=== PATIENT | female | born 1980 | race Caucasian/White ===

== ENCOUNTER 2020-02-12 08:27 | Emergency (ER) | payer BC, SELFPAY ==
--- NOTE | ~2020-02-12 | XR_ITS ---
EXAMINATION: XR finger 3rd RT min 2V DATE: 02/12/2020 08:57 INDICATION: Laceration to the distal right third digit TECHNIQUE: Dorsal palmar, lateral and 2 oblique views of the right third digit were obtained COMPARISON: None FINDINGS: Alignment is normal. No fracture. Joint spaces are normal. Laceration at the palmar/radial aspect of the third digit at the level of the distal interphalangeal joint line. No radiopaque foreign bodies i dentified however sensitivity is decreased by the bandaging material surrounding the third digit IMPRESSION: 1. No osseous abnormality. Line 2. Deep laceration with no evident radiopaque foreign body. Sensitivity is however decreased by super imposed bandaging material. Reviewed, dictated and finalized at location A. IMPRESSION: 1. No osseous abnormality. Line 2. Deep laceration with no evident radiopaque foreign body. Sensitivity is otero cruz decreased by superimposed bandaging material.
[2020-02-12 08:42] VITALS: BP 125/91; PULSE 81; RESP 17; TEMP 36.3; O2SAT 99
--- NOTE | 2020-02-12 08:47 | ED.WOUNDLAC ---
HPI - Wound/Laceration General Chief Complaint: Wound/Laceration <Allyson Guerrero MD - Last Filed: 02/12/20 18:53> Stated Complaint: laceration left wrist <Allyson Guerrero MD - Last Filed: 02/12/20 18:53> Time Seen by Provider: 02/12/20 08:37 <Allyson Guerrero MD - Last Filed: 02/12/20 18:53> Source: patient <Allyson Guerrero MD - Last Filed: 02/12/20 18:53> Mode of arrival: ambulatory <Allyson Guerrero MD - Last Filed: 02/12/20 18:53> Limitations: no limitations <Allyson Guerrero MD - Last Filed: 02/12/20 18:53> History of Present Illness HPI narrative: This patient is a 39 year old female right hand dominant who presents for evaluation of right 3rd finger laceration. This morning she reports a glass bottle fell and broken piece hit her finger causing a laceration. She denies numbness or tingling. She reports her tetanus being up to date. <Allyson Guerrero MD - Last Filed: 02/12/20 18:53> Related Data Home Medications: Home Medications Medication Instructions Recorded Confirmed lisinopril 5 mg tablet 5 mg PO DAILY 01/20/20 01/20/20 <Allyson Guerrero MD - Last Filed: 02/12/20 18:53> Allergies/Adverse Reactions: Allergies Allergy/AdvReac Type Severity Reaction Status Date / Time Penicillins Allergy Unknown Anaphylaxis Verified 01/20/20 09:18 <Allyson Guerrero MD - Last Filed: 02/12/20 18:53> Review of Systems Review of Systems: All systems reviewed & are unremarkable except as noted in HPI and below <Allyson Guerrero MD - Last Filed: 02/12/20 18:53> [facility] Past Medical History Medical History: Medical History delivery delivered x2 Hypertension <Allyson Guerrero MD - Last Filed: 02/12/20 18:53> Surgical History Surgical History: Surgical History H/O section <Allyson Guerrero MD - Last Filed: 02/12/20 18:53> Family History Family History: Family History Grandparent Family history of elevated blood lipids Cerebrovascular accident Family history of coronary artery disease Diabetes mellitus Family history of heart disease in male family member before age 55 Sibling Family history of mental disorder Depression Father Family history of alcoholism Mother Family history of arthritis Family history of attention deficit hyperactivity disorder (ADHD) Other Family history of cardiovascular disease Family history of congestive heart failure Family history of hearing loss Family history of lupus erythematosus Family history of malignant neoplasm of male breast <Allyson Guerrero MD - Last Filed: 02/12/20 18:53> Social History Social History: Social History Smoking status: Former smoker Second hand tobacco smoke exposure: No Smoking end date: 10/17/13 Alcohol intake: never Gender identity (if verbalized by the patient): Female <Allyson Guerrero MD - Last Filed: 02/12/20 18:53> Exam Narrative: Exam Narrative: GENERAL: Well-appearing, well-nourished, and in no acute distress. HEAD: Normocephalic, atraumatic. EYES: PERRLA and EOMI. ENT: Nares clear, no rhinorrhea or epistaxis. Mucous membranes moist. EXTREMITIES: Normal range of motion. No edema. SKIN: Warm, dry, no rash. Patient with irregular deep laceration coursing across the palmar aspect of the right middle digit distally just past the DIP joint. On examination the flexor tendon is cut. Patient is able still to flex the digit and extend the digit patient does have some difficulty with the flexion component. NEURO: No focal deficits. Alert and oriented x3. Neurovascularly intact PSYCH: Normal mood and affect. <Julio C Pittman PA-C - Last Filed: 02/12/20 11:26> Course
[2020-02-12 11:30] VITALS: BP 138/75; PULSE 75; RESP 16; O2SAT 100
== END 2020-02-12 11:30 | disposition home or self-care (01) ==
PROVIDERS: Emergency Provider General Practice
DX: S61.212A Laceration without foreign body of right middle finger without damage to nail, initial encounter (principal); I10 Essential (primary) hypertension; W25.XXXA Contact with sharp glass, initial encounter
CPT/HCPCS: 12001; 73140; 99283

== ENCOUNTER → 2020-08-04 10:37 | Outpatient (CLI) | payer OTHER, SELFPAY ==
--- NOTE | ~2020-08-04 | MM_ITS ---
EXAMINATION: MM screening dipika BI w rossy HISTORY: Screening TECHNIQUE: Craniocaudal and mediolateral oblique 3-D tomosynthesis images were obtained and synthetic 2-D images were generated. CAD analysis was submitted and interpreted. COMPARISON: No prior mammogram is available for comparison at this institution. BREAST PARENCHYMAL COMPOSITION: Breast composed of scattered areas of fibroglandular density. FINDINGS: There is focal asymmetry in the upper outer quadrant of the right breast. There are no susp icious masses, calcifications or architectural distortion in the left breast to suggest malignancy. IMPRESSION: 1. Focal asymmetry upper outer quadrant of the right breast, middle third. 2. Additional mammographic views and possible breast ultrasound are recommended. BI-RADS Category 0: Incomplete: Needs additional imaging evaluation. Reviewed, dictated and finalized at location A. H SHEAR OPERATOR IMPRESSION: 1. Focal asymmetry upper outer quadrant of the right breast, middle third. 2. Additional mammographic views and possible breast ultrasound are recommended . BI-RADS Category 0: Incomplete: Needs additional imaging evaluation.
== END ==
PROVIDERS: Visit Provider Obstetrics & Gynecology
DX: Z12.31 Encounter for screening mammogram for malignant neoplasm of breast (principal); R92.8 Other abnormal and inconclusive findings on diagnostic imaging of breast
CPT/HCPCS: 77063; 77067

== ENCOUNTER 2020-08-31 09:07 | Outpatient (CLI) | payer OTHER, SELFPAY ==
--- NOTE | ~2020-08-31 | MMUS_ITS ---
EXAMINATION: MM diagnostic mammo unilat RT, US breast RT limited HISTORY: Follow-up right breast asymmetries TECHNIQUE: Additional 3-D tomosynthesis images of the right breast were performed and synthetic 2-D i mages were generated. CAD analysis was submitted and interpreted. High resolution Limited right breas t ultrasound was performed. COMPARISON: 08/04/2020 BREAST PARENCHYMAL COMPOSITION: Breast composed of scattered areas of fibroglandular density. FINDINGS: MAMMOGRAPHIC FINDINGS: There are no discrete masses, calcifications or architectural distortion in the right breast to sugge st malignancy. ULTRASOUND: Limited right breast ultrasound: At 11:00, 3 cm from the nipple, there is an oval hypoechoic mass juan jose suring 0.35 cm, compatible with complicated cyst. At 9:00, 3 cm from the nipple, there is a 5 mm cyst . No suspicious masses to suggest malignancy. IMPRESSION: 1. No evidence for malignancy in the right breast. 2. Routine yearly screening mammogram and regular clinical breast examination are recommended. BI-RADS Category 2: Benign finding(s). Reviewed, dictated and finalized at location A. IMPRESSION: 1. No evidence for malignancy in the right breast. 2. Routine yearly screening mammogram and regular clinical breast examination a re recommended. BI-RADS Category 2: Benign finding(s).
== END 2020-08-31 09:08 ==
PROVIDERS: Visit Provider Obstetrics & Gynecology
DX: R92.8 Other abnormal and inconclusive findings on diagnostic imaging of breast (principal)
CPT/HCPCS: 76642; 77065

== ENCOUNTER 2021-06-14 10:45 | Emergency (ER) | payer BC, SELFPAY ==
[2021-06-14 11:44] VITALS: BP 112/78; PULSE 105; RESP 18; TEMP 36.6; O2SAT 99
--- NOTE | 2021-06-14 11:53 | ED.URI ---
HPI - URI/Sore Throat General Chief Complaint: Upper Respiratory Infection Stated Complaint: Headache,Congestion,Cough Time Seen by Provider: 06/14/21 11:53 Source: patient, RN notes reviewed and old records reviewed Mode of arrival: ambulatory Limitations: no limitations History of Present Illness HPI Narrative: 40-year-old female presents to the [facility] with complaints of headache cough and congestion with occasional drainage for 2 weeks. States the symptoms got worse on the 24th, 3 days ago. Had chills and middle of the night. Unsure of having fever did not have a thermometer to check. Related Data Home Medications Medication Instructions Recorded Confirmed lisinopril 5 mg tablet 5 mg PO DAILY 01/20/20 06/14/21 cholecalciferol (vitamin D3) 25 25 mcg PO DAILY 02/12/21 06/14/21 mcg (1,000 unit) capsule multivitamin 1 tablet PO DAILY 02/12/21 06/14/21 Allergies Allergy/AdvReac Type Severity Reaction Status Date / Time Penicillins Allergy Severe Anaphylaxis Verified 06/14/21 11:38 Review of Systems Review of Systems: All systems reviewed & are unremarkable except as noted in HPI and below Constitutional: Constitutional: Reports as per HPI and Reports chills Eyes: Eyes: Reports no additional eye complaints ENT: Reports as per HPI, Reports nasal congestion and Denies sore throat Cardiovascular: Cardiovascular: Reports no additional cardiovascular complaints Respiratory: Respiratory: Reports as per HPI, Denies chest congestion, Reports cough, Denies dyspnea and Denies wheezing Gastrointestinal: Gastrointestinal: Reports no additional gastrointestinal complaints, Denies abdominal pain, Denies nausea and Denies vomiting Musculoskeletal: Musculoskeletal: Reports no additional musculoskeletal complaints, Denies back pain, Denies myalgias, Denies arthralgias, Denies joint swelling and Denies muscle cramps Integumentary/Breasts: Skin/Breast: Reports system reviewed and no additional complaints, except as docu Neurologic: Reports system reviewed and no additional complaints, except as documented Psychiatric: Psychiatric: Reports no additional psychiatric complaints Allergic/Immunologic: Allergic/Immunologic: Reports no additional allergic/immunologic complaints PMFSH Past Medical History Medical History (Updated 06/14/21 @ 12:03 by Ashley Gray) delivery delivered x2 Hypertension Surgical History Surgical History H/O section Family History Family History Grandparent Family history of elevated blood lipids Cerebrovascular accident Family history of coronary artery disease Diabetes mellitus Family history of heart disease in male family member before age 55 Sibling Family history of mental disorder Depression Father Family history of alcoholism Mother Family history of arthritis Family history of attention deficit hyperactivity disorder (ADHD) Other Family history of cardiovascular disease Family history of congestive heart failure Family history of hearing loss Family history of lupus erythematosus Family history of malignant neoplasm of male breast Social History Social History Smoking status: Former smoker Second hand tobacco smoke exposure: No Smoking end date: 10/17/13 Alcohol intake: never Gender identity (if verbalized by the patient): Female Comments At the time of my signature, I reviewed and agree with the nursing past medical, surgical, social, and family history. There is no relevant family history pertinent to the patient complaint. Exam Const: General: healthy appearing, no acute distress and alert Nutritional Appearance: well nourished Orientation/consciousness: patient oriented x3 Limitations: no limitations HENMT: Head: normal to inspection Ears: external ears normal, EAC's normal
== END 2021-06-14 12:10 | disposition home or self-care (01) ==
PROVIDERS: Emergency Provider Nurse Practitioner; PCP Internal Medicine
DX: R09.82 Postnasal drip (principal); J32.9 Chronic sinusitis, unspecified; Z87.891 Personal history of nicotine dependence; I10 Essential (primary) hypertension
CPT/HCPCS: 99213; G0463

== ENCOUNTER → 2021-12-07 16:01 | Outpatient (CLI) | payer BC, SELFPAY ==
--- NOTE | ~2021-12-07 | MM_ITS ---
EXAMINATION: MM screening dipika BI w rossy HISTORY: Screening mammogram TECHNIQUE: Craniocaudal and mediolateral oblique 3-D tomosynthesis images were obtained and synthetic 2-D images were generated. CAD analysis was submitted and interpreted. COMPARISON: 09/03/2020 diagnostic right mammogram and right Limited breast ultrasound bilateral screening mammogram BREAST PARENCHYMAL COMPOSITION: There are scattered areas of fibroglandular density. FINDINGS: There is no evidence of suspicious mass, calcification, or architectural distortion to sugg est malignancy in either breast. There has been no suspicious interval change. IMPRESSION: 1. No mammographic evidence of malignancy. 2. Recommend routine screening mammography in one year. BI-RADS Category 1: Negative Reviewed, dictated and finalized at location A.
== END ==
PROVIDERS: PCP Internal Medicine; Visit Provider Internal Medicine
DX: Z12.31 Encounter for screening mammogram for malignant neoplasm of breast (principal)
CPT/HCPCS: 77063; 77067

== ENCOUNTER → 2023-01-06 16:26 | Outpatient (CLI) | payer BC, SELFPAY ==
--- NOTE | ~2023-01-06 | MM_ITS ---
EXAMINATION: MM screening dipika BI w rossy HISTORY: Screening TECHNIQUE: Craniocaudal and mediolateral oblique 3-D tomosynthesis images were obtained and synthetic 2-D images were generated. CAD analysis was submitted and interpreted. COMPARISON: Comparison to multiple prior studies sequentially, with oldest reviewed study dated 08/04. BREAST PARENCHYMAL COMPOSITION: There are scattered areas of fibroglandular density. FINDINGS: There is a new focal asymmetry superiorly in the left breast on MLO view. The right breast is stable without evidence for malignancy. IMPRESSION: 1. New focal left breast asymmetry superiorly on MLO view. 2. Additional mammographic views and possible breast ultrasound are recommended. BI-RADS Category 0: Incomplete: Needs additional imaging evaluation. Reviewed, dictated and finalized at location A. IMPRESSION: 1. New focal left breast asymmetry superiorly on MLO view. 2. Additional mammographic views and possible breast ultrasound are recommended . BI-RADS Category 0: Incomplete: Needs additional imaging evaluation.
== END ==
PROVIDERS: PCP Internal Medicine; Visit Provider Internal Medicine
DX: Z12.31 Encounter for screening mammogram for malignant neoplasm of breast (principal); R92.8 Other abnormal and inconclusive findings on diagnostic imaging of breast
CPT/HCPCS: 77063; 77067

== ENCOUNTER → 2023-01-26 07:59 | Outpatient (CLI) | payer BC, SELFPAY ==
--- NOTE | ~2023-01-26 | MMUS_ITS ---
EXAMINATION: MM diagnostic dipika LT w rossy, US breast LT limited HISTORY: Left breast asymmetry on screening mammogram TECHNIQUE: Additional 3-D tomosynthesis images of the left breast were performed and synthetic 2-D im ages were generated. CAD analysis was submitted and interpreted. High resolution limited left breast ultrasound was performed. COMPARISON: 01/06/2023, 12/07/2021, 08/04/2020 FINDINGS: MAMMOGRAPHIC FINDINGS: There is a return to baseline fibroglandular appearance with spot compression of the left breast in t he area questioned on screening mammogram. ULTRASOUND: No suspicious cystic or solid mass is identified in the area of the mammographic finding in question. There is a 2 mm cyst at the 10:00 location 1 cm from the nipple. IMPRESSION: 1. No mammographic or sonographic evidence of malignancy. 2. Recommend routine screening mammography in one year. BI-RADS Category 2: Benign finding(s). Reviewed, dictated and finalized at location A. IMPRESSION: 1. No mammographic or sonographic evidence of malignancy. 2. Recommend routine screening mammography in one year. BI-RADS Category 2: Benign finding(s).
== END ==
PROVIDERS: PCP Obstetrics & Gynecology; Visit Provider Internal Medicine
DX: R92.8 Other abnormal and inconclusive findings on diagnostic imaging of breast (principal)
CPT/HCPCS: 76642; 77061; 77065; G0279

== ENCOUNTER 2023-07-01 22:05 | Emergency (ER) | payer BC, SELFPAY ==
--- NOTE | ~2023-07-01 | CT_ITS ---
EXAMINATION: CT brain wo con INDICATION: Head injury COMPARISON: None TECHNIQUE: Standard unenhanced head CT. The dose-length product (DLP) was 605.33 mGy-cm. The mA was a djusted according to patient size. Iterative reconstruction technique was employed. FINDINGS: No intracranial hemorrhage, acute infarction, or abnormal mass lesion. The ventricles are n ormal. No abnormal mass effect or midline shift. The doyle-white matter differentiation is normal. The basal cisterns are patent. There is soft tissue swelling and laceration just cranial to the left orb it. The orbits are normal. The paranasal sinuses, mastoids and calvarium are normal. IMPRESSION: 1. Left periorbital laceration and soft tissue swelling without acute intracranial abnormality. Reviewed, dictated and finalized at location F. KER IMPRESSION: 1. Left periorbital laceration and soft tissue swelling without acute intracran ial abnormality.
--- NOTE | ~2023-07-01 | CT_ITS ---
EXAMINATION: CT cervical spine wo con DATE: 07/01/2023 22:44 INDICATION: Head injury TECHNIQUE: Computed tomography (CT) of the cervical spine was performed without intravenous contrast. The dose-length product (DLP) was 366.33 mGy-cm. Automated exposure control and iterative reconstruc tion technique were employed. COMPARISON: 03/24/2017 FINDINGS: There is straightening of the cervical spine which can be positional or due to muscular spa sm. Bone alignment is normal. There is no fracture. The vertebral body heights and intervertebral dis c spaces are maintained. The odontoid process is intact. IMPRESSION: 1. No acute osseous abnormality. Reviewed, dictated and finalized at location F. HANDLER
[2023-07-01 22:12] VITALS: BP 133/92; PULSE 78; RESP 16; TEMP 36.5; O2SAT 99
--- NOTE | 2023-07-01 23:02 | ED.FALL ---
HPI - Fall General Chief Complaint: Fall Stated Complaint: slip and fall hitting head on patio chair Time Seen by Provider: 07/01/23 22:23 Source: patient Mode of arrival: ambulatory Limitations: no limitations History of Present Illness HPI Narrative: Patient is a 42-year-old female who presents ED with report of a fall. Patient reports she was taking her dog out this evening and slipped on her porch in her slippers. She hit her head against a patio chair. She did not lose consciousness. She sustained a laceration to her L eyebrow. Extends to L upper eyelid. No other injuries. No vision changes. No pain with eye movements. No neck or back pain. Tetanus UTD within last 5 years. Related Data Home Medications Medication Instructions Recorded Confirmed lisinopril 5 mg tablet 5 mg PO DAILY 01/20/20 02/24/22 cholecalciferol (vitamin D3) 25 25 mcg PO DAILY 02/12/21 02/24/22 mcg (1,000 unit) capsule multivitamin 1 tablet PO DAILY 02/12/21 02/24/22 fluticasone propionate 50 1 spray intranasal DAILY 02/24/22 02/24/22 mcg/actuation nasal spray,suspension (Flonase Allergy Relief) Allergies Allergy/AdvReac Type Severity Reaction Status Date / Time Penicillins Allergy Severe Anaphylaxis Verified 06/28/23 11:45 Review of Systems Review of Systems: CONSTITUTIONAL: Denies fever, chills, or sweats. ENT: See HPI MUSCULOSKELETAL: Denies back pain, neck pain. NEUROLOGIC: See HPI. All systems reviewed & are unremarkable except as noted in HPI and below PMFSH Past Medical History Medical History delivery delivered x2 Hypertension Surgical History Surgical History H/O section Family History Family History Grandparent Family history of elevated blood lipids Cerebrovascular accident Family history of coronary artery disease Diabetes mellitus Family history of heart disease in male family member before age 55 Sibling Family history of mental disorder Depression Father Family history of alcoholism Mother Family history of arthritis Family history of attention deficit hyperactivity disorder (ADHD) Other Family history of cardiovascular disease Family history of congestive heart failure Family history of hearing loss Family history of lupus erythematosus Family history of malignant neoplasm of male breast Social History Social History Smoking status: Former smoker Second hand tobacco smoke exposure: No Smoking end date: 10/17/13 Alcohol intake: never Substance use: never Lack of Transportation: No Lack of Food: Never True Current Housing: I Have Housing Concerned About Future Housing: No Difficulty Paying Gas/Electric Bills: No Difficulty Paying for Meds: No Currently Unemployed: No Difficulty w/ Childcare or Family Care: No Occupation/Education: occupation Gender identity (if verbalized by the patient): Female Exam Narrative: GENERAL: Well appearing, well-nourished, non-toxic, in no acute distress. HEAD: Normocephalic, atraumatic. EYES: PERRL/EOMI, conjunctiva clear. 1.5cm laceration through medial portion of L eyebrow. No active bleeding, approximates well. Superficial abrasion to upper eyelid diagonally, does not extend past epidermis, no bleeding. RESPIRATORY: Airway patent, respirations nonlabored. CARDIOVASCULAR: Regular rate and rhythm. MUSCULOSKELETAL: Moves all extremities. No gross deformities. SKIN: Warm, dry, normal color. NEURO: A&O X3. Speech clear. Cranial nerves II-XII grossly intact. No ataxic movements. PSYCHIATRIC: Appropriate mood and affect. Normal interaction. Course Vital Signs Vital signs: Vital Signs Temperature 97.7 F 07/01/23 22:12 Pulse Rate 78
== END 2023-07-01 23:54 | disposition home or self-care (01) ==
PROVIDERS: Emergency Provider Physician Assistant
DX: S01.112A Laceration without foreign body of left eyelid and periocular area, initial encounter (principal); I10 Essential (primary) hypertension; Z87.891 Personal history of nicotine dependence; W01.190A Fall on same level from slipping, tripping and stumbling with subsequent striking against furniture, initial encounter
CPT/HCPCS: 12011; 70450; 72125; 99284

== ENCOUNTER 2024-10-08 08:00 | Outpatient (CLI) | payer BC, SELFPAY ==
--- NOTE | ~2024-10-08 | MM_ITS ---
EXAMINATION: MM screening dipika BI w rossy HISTORY: Screening TECHNIQUE: Craniocaudal and mediolateral oblique 3-D tomosynthesis images were obtained and synthetic 2-D images were generated. CAD analysis was submitted and interpreted. COMPARISON: Comparison to multiple prior studies sequentially, with oldest reviewed study dated 08/04. BREAST PARENCHYMAL COMPOSITION: Not dense: There are scattered areas of fibroglandular density. FINDINGS: There is no evidence of suspicious mass, calcification, or architectural distortion to sugg est malignancy in either breast. There has been no suspicious interval change. IMPRESSION: 1. No mammographic evidence of malignancy. 2. Recommend routine screening mammography in one year. BI-RADS Category 1: Negative Reviewed, dictated and finalized at location A.
== END 2024-10-08 08:01 | disposition home or self-care (01) ==
LOC: MICIMG 08:02
PROVIDERS: PCP Internal Medicine; Visit Provider Obstetrics & Gynecology
DX: Z12.31 Encounter for screening mammogram for malignant neoplasm of breast (principal)
CPT/HCPCS: 77063; 77067